=== PATIENT | female | born 1985 | race Two or more races ===

== ENCOUNTER → 2018-08-28 09:53 | Outpatient (CLI) | payer MEDICAID, SELFPAY ==
[2018-08-28 10:27] LABS: Basophils # 0.1 K/mm3 (0-0.2); Basophils % 0.3 % (0.1-2.0); Eosinophils # 0.3 K/mm3 (0.0-0.4); Eosinophils % 2.3 % (0.1-12.0); Hemoglobin 12.1 g/dL (12.2-16.2); Lymphocytes # 3.4 K/mm3 (0.7-4.5); Lymphocytes % 23.3 % (10-50); Mean Corpuscular HGB Conc 31.8 g/dL (31.8-35.4); Mean Corpuscular Hemoglobin 28.8 pg (27.0-31.2); Mean Corpuscular Volume 90.3 fl (81-99); Monocytes # 0.5 K/mm3 (0.1-1.0); Monocytes % 3.3 % (1.7-9.3); Neutrophils # 10.4 K/mm3 (1.8-7.8); Neutrophils % 70.8 % (37.0-80.0); Platelet Count 387 K/mm3 (142-424); Red Cell Distribution Width 12.6 % (11.5-17.5); White Blood Count 14.7 K/mm3 (4.8-10.8)
[2018-08-28 11:29] LABS: Alanine Aminotransferase 22 U/L (12-78); Albumin Level 2.9 gm/dL (3.4-5.0); Albumin/Globulin Ratio 0.8 (1.1-1.8); Alkaline Phosphatase 75 U/L (46-116); Anion Gap 14.1 mEq/L (5-15); Aspartate Amino Transferase 16 U/L (15-37); Bilirubin,Total 0.2 mg/dL (0.2-1.0); Blood Urea Nitrogen 11 mg/dL (7-18); Calcium 8.5 mg/dL (8.5-10.1); Carbon Dioxide 25 mmol/L (21.0-32.0); Chloride 103 mmol/L (98-107); Creatinine,Serum 0.81 mg/dL (0.55-1.02); Estimated Glomerular Filt Rate 81 ml/min (>60); Ferritin 48 ng/mL (8-388); GFR (African American) 99 ML/MIN (>60); Globulin 3.7 gm/dl (1.3-3.2); Glucose 99 mg/dL (74-106); Potassium 4.1 mmoL/L (3.5-5.1); Sodium 138 mmol/L (136-145); Thyroid Stimulating Hormone 3.03 uIU/ml (0.358-3.740); Total Protein,Serum 6.6 gm/dL (6.4-8.2)
== END ==
PROVIDERS: Visit Provider Specialist
DX: E83.10 Disorder of iron metabolism, unspecified (principal); I10 Essential (primary) hypertension; R51 Headache
CPT/HCPCS: 36415; 80053; 82728; 84443; 85025

== ENCOUNTER 2023-03-04 07:14 | Outpatient (CLI) | payer MEDICAID, SELFPAY ==
--- NOTE | 2023-03-04 08:09 | US_ITS ---
FINAL REPORT CLINICAL HISTORY: UPPER ABD PAIN COMPARISON: None FINDINGS: Sonographic images of the abdomen were obtained. There is fatty infiltration of the liver. The gallbladder has been surgically resected. There is no evidence of biliary ductal dilatation. The common hepatic duct measures 3 mm, which is within normal limits. Limited images of the pancreas are unremarkable. The spleen size is normal. The right kidney measures 9.9 in length. The left kidney measures 10.1 in length. There is normal renal echogenicity. There is no evidence of hydronephrosis. The aorta has an unremarkable appearance. Limited images of the inferior vena cava are unremarkable. IMPRESSION: Prior cholecystectomy. Fatty infiltration of the liver without evidence of biliary ductal dilatation. Reviewed, Interpreted and Dictated by Harpal Morejon III, MD Transcribed by Rahel Pina Authenticated and [facility]
== END 2023-03-04 23:59 ==
LOC: RAD 07:14
PROVIDERS: PCP Nurse Practitioner Family; Visit Provider Nurse Practitioner Family
DX: R10.13 Epigastric pain (principal)
CPT/HCPCS: 76700

== ENCOUNTER 2023-06-30 14:15 | Outpatient (CLI) | payer MEDICAID, SELFPAY ==
[2023-06-30 14:56] LABS: Basophils # 0.1 K/mm3 (0-0.2); Basophils % 0.4 % (0.1-2.0); Eosinophils # 0.4 K/mm3 (0.0-0.4); Eosinophils % 2.9 % (0.1-12.0); Hematocrit 37.8 % (37.0-47.0); Hemoglobin 12.7 g/dL (12.2-16.2); Lymphocytes # 2.3 K/mm3 (0.7-4.5); Lymphocytes % 16.2 % (10-50); Mean Corpuscular HGB Conc 33.5 g/dL (31.8-35.4); Mean Corpuscular Hemoglobin 27.7 pg (27.0-31.2); Mean Corpuscular Volume 82.7 fl (81-99); Mean Platelet Volume 8.3 fl (7.4-10.4); Monocytes # 0.6 K/mm3 (0.1-1.0); Monocytes % 4.3 % (1.7-9.3); Neutrophils # 10.9 K/mm3 (1.8-7.8); Neutrophils % 76.1 % (37.0-80.0); Platelet Count 388 K/mm3 (142-424); Red Blood Count 4.57 M/mm3 (4.20-5.40); Red Cell Distribution Width 17.2 % (11.5-17.5); White Blood Count 14.4 K/mm3 (4.8-10.8)
[2023-06-30 15:16] LABS: Chloride 101 mmol/L (98-107)
[2023-06-30 15:17] LABS: Potassium 4.3 mmoL/L (3.5-5.1); Sodium 136 mmol/L (136-145)
[2023-06-30 15:19] LABS: Alanine Aminotransferase 24 U/L (12-78); Alkaline Phosphatase 146 U/L (38-126); Aspartate Amino Transferase 28 U/L (14-36); Bilirubin,Total 0.7 mg/dl (0.2-1.3); Blood Urea Nitrogen 17 mg/dl (7-17); Estimated Glomerular Filt Rate 94 ml/min (>60); GFR (African American) 113 ML/MIN (>60)
[2023-06-30 15:20] LABS: Albumin Level 3.9 g/dl (3.5-5.0); Albumin/Globulin Ratio 1.3 (1.1-1.8); Anion Gap 14.3 mEq/L (5-15); Calcium 9.7 mg/dl (8.4-10.2); Carbon Dioxide 25 mmol/L (22.0-30.0); Globulin 2.9 g/dL (1.3-3.2); Glucose 104 mg/dl (74-100); Total Protein,Serum 6.8 g/dl (6.3-8.2)
[2023-06-30 17:23] LABS: HCG,Quantitative < 2 mIU/ml (0-5.42)
[2023-07-02 10:28] LABS: DHEA-Sulfate 43.9 ug/dL (57.3-279.2); Estradiol 21.1 pg/mL (.); LH 1.7 mIU/mL (.); Prolactin 14.9 ng/mL (4.8-33.4); Testosterone,Total <3 ng/dL (8-60)
== END 2023-06-30 23:59 | disposition home or self-care (01) ==
PROVIDERS: PCP Nurse Practitioner Family; Visit Provider Obstetrics & Gynecology
DX: Z01.419 Encounter for gynecological examination (general) (routine) without abnormal findings (principal); N91.1 Secondary amenorrhea
CPT/HCPCS: 36415; 80053; 82626; 82670; 83001; 83002; 83498; 84146; 84403; 84702; 85025

== ENCOUNTER 2023-09-27 15:04 | Outpatient (CLI) | payer MEDICAID, SELFPAY ==
--- NOTE | 2023-09-27 15:19 | US_ITS ---
PROCEDURE: US TRANSVAGINAL CLINICAL INDICATION: Secondary Amenorrhea COMPARISON: There are no transvaginal ultrasounds for comparison. FINDINGS: Transvaginal sonographic images of the pelvis were obtained. UTERUS: 8.2cm x 4.5 cmx 3.5cm anteverted with a combined endometrial thickness of 4.4mm. There is a small amount of fluid in the cervical canal. LEFT OVARY: 1.9 cmx2.5cmx1.1cm with a volume of 2.7ml. RIGHT OVARY: 1.6x 1.7x1.2cm with a volume of 1.6ml. The right ovary is difficult to visualize but appears normal. Both ovaries are seen and appear atrophic. Doppler flow to both ovaries are seen. There is no fluid in the cul-de-sac. IMPRESSION: 1. Anteverted uterus normal in shape and size. The endometrium is thin. There is a small amount of fluid in the cervical canal. 2. Both ovaries are seen and appear normal. They appear atrophic. The right ovary was more difficult to visualize. 3. No fluid in the cul-de-sac. Dictated by: Lonnie Mercedes MD 09/27/2023 16:56 Lonnie Mercedes MD in OV 09/27/2023 16:56
[2023-09-27 16:01] LABS: Basophils # 0.1 K/mm3 (0-0.2); Basophils % 0.7 % (0.1-2.0); Eosinophils # 0.3 K/mm3 (0.0-0.4); Eosinophils % 1.9 % (0.1-12.0); Hematocrit 37.3 % (37.0-47.0); Hemoglobin 12.5 g/dL (12.2-16.2); Lymphocytes # 2.9 K/mm3 (0.7-4.5); Lymphocytes % 22.4 % (10-50); Mean Corpuscular HGB Conc 33.4 g/dL (31.8-35.4); Mean Corpuscular Hemoglobin 30.6 pg (27.0-31.2); Mean Corpuscular Volume 91.6 fl (81-99); Mean Platelet Volume 8.6 fl (7.4-10.4); Monocytes # 0.7 K/mm3 (0.1-1.0); Monocytes % 5.3 % (1.7-9.3); Neutrophils # 9.1 K/mm3 (1.8-7.8); Neutrophils % 69.8 % (37.0-80.0); Platelet Count 356 K/mm3 (142-424); Red Blood Count 4.07 M/mm3 (4.20-5.40); Red Cell Distribution Width 12.9 % (11.5-17.5); White Blood Count 13.1 K/mm3 (4.8-10.8)
[2023-09-27 16:07] LABS: Alanine Aminotransferase 15 U/L (12-78); Albumin Level 3.6 g/dl (3.5-5.0); Albumin/Globulin Ratio 1.2 (1.1-1.8); Alkaline Phosphatase 79 U/L (38-126); Anion Gap 11.2 mEq/L (5-15); Aspartate Amino Transferase 25 U/L (14-36); Bilirubin,Total 0.4 mg/dl (0.2-1.3); Blood Urea Nitrogen 15 mg/dl (7-17); Calcium 9.5 mg/dl (8.4-10.2); Carbon Dioxide 29 mmol/L (22.0-30.0); Chloride 100 mmol/L (98-107); Estimated Glomerular Filt Rate 94 ml/min (>60); GFR (African American) 113 ML/MIN (>60); Globulin 2.9 g/dL (1.3-3.2); Glucose 91 mg/dl (74-100); Potassium 4.2 mmoL/L (3.5-5.1); Sodium 136 mmol/L (136-145); Total Protein,Serum 6.5 g/dl (6.3-8.2)
[2023-09-27 16:45] LABS: HCG,Quantitative < 2 mIU/ml (0-5.42)
== END 2023-09-27 23:59 | disposition home or self-care (01) ==
LOC: RAD 15:05
PROVIDERS: PCP Nurse Practitioner Family; Visit Provider Obstetrics & Gynecology
DX: E28.2 Polycystic ovarian syndrome (principal); N91.1 Secondary amenorrhea; Z01.818 Encounter for other preprocedural examination
CPT/HCPCS: 36415; 76830; 80053; 84702; 85025

== ENCOUNTER 2023-10-04 06:00 | Day surgery (SDC) | payer MEDICAID, SELFPAY ==
[2023-10-03 10:29] VITALS: BMI 56.7
[2023-10-04] VITALS (9 sets, daily range): BP systolic 112–152; BP diastolic 59–106; PULSE 63–101; RESP 14–18; TEMP 36.1–43; O2SAT 94–99
[2023-10-04] MEDS: LACTATED RINGERS 1000ML 1,000 ML 25 ML IV (06:21)
--- NOTE | 2023-10-04 08:11 | EXP.ANES.CKL ---
[facility] Disclaimer: The information contained in this section may have been updated after the patient was seen, as this information can be updated by other users. Medical History High blood pressure High cholesterol PCOS (polycystic ovarian syndrome) Migraine Surgical History History of cholecystectomy [place] teeth extracted Family History Family/Other Cancer second cousin-breast cancer Mother PCOS (polycystic ovarian syndrome) Social History Smoking Status: Never smoker alcohol intake: never substance use type: denies use current occupational status: employed and unemployed Travel in the last 8 weeks: None household members: family housing: house number of children: 0 [facility] Anesthesia Checklist Patient Identification Patient Identification: Verbal (Name & ) Structural Data Admitted From: Home Planned Operative Procedure/s: lap salpingectomy Consent for Planned Operative Procedure(s) Verified: Yes NPO Status Verified Time NPO: 00:00 Additional verifications Anesthesia Reactions: No Hx Blood Transfusions: No Blood Transfusion Reaction: No Airway Assessment Mallampati Score:: Class II C-Spine Mobility Assessed: Yes TMJ Mobility Assessed: Yes Dentition: Good Dentition Neurological Assessment Level of Consciousness: Awake, Alert and Appropriate Anesthesia Plan Anesthesia Risk discussed: Yes Anesthesia Plan: Verified ASA Class: III Anesthesia Type: General
--- NOTE | 2023-10-04 08:37 | EXP.OP.NOTE ---
Date of procedure: 10/04/23 Pre-op Diagnosis:: 1. Desires sterilization 2. Morbid obesity Post-op Diagnosis:: 1. Desires sterilization 2. Morbid obesity Procedure performed:: Laparoscopic sterilization with Filshie clips Surgeon:: Maya Oliveros DO Sheet Fed Printer(s):: Lonnie Mercedes MD AFLOAT CRYPTOLOGIC MANAGER:: Avila Salmeron Anesthesia: GETA Estimated blood loss (mL): 5 Operative findings:: 1. Bimanual examination was nonrevealing secondary to body habitus 2. Laparoscopic exam was difficult but revealed normal bowel, normal uterus, the lower uterine segment and ovaries were difficult to visualize but appeared normal. Operative note:: Jessy Coto is a 38-year-old who desires permanent sterilization. Encouraged IUD secondary to her secondary amenorrhea and the patient declined and wished to use a more permanent form of contraception. The patient was taken to the operating room where general anesthesia was obtained and noted to be adequate. SCDs were placed for thromboembolism prophylaxis and found to be working. The patient was placed in the dorsal lithotomy position using yellowfin stirrups. Timeout verified the correct patient and procedure. The patient was prepped and draped in a usual sterile fashion. A catheter was used to drain her bladder. An acorn uterine manipulator was placed and my top gloves were removed. 10mL of Lidocaine with epinepherine was injected infraumbilically and a scalpel was used to make a 5 mm infraumbilical incision with the assistance from a hemostat. The skin was tented and Optiview blunt trocar was introduced into the abdomen in the usual fashion. CO2 gas was connected with an initial pressure of 9 mmHg noted, visualization confirmed the correct location and the pressure quickly increased to approximately 13 mmHg. Pneumoperitoneum was created to a pressure of 15 mmHg. The laparoscopic camera was inserted and a quick survey of the abdomen revealed grossly normal anatomy for what could be visualized as there was signifcant amount of adipose tissue. The uterus was pushed into the abdomen and noted to have a normal contour. The patient was placed in Trendelenburg. 10mLs of local anesthetic was injected and a 5mm incision was then made in the left lower quadrant with careful attention to avoid the rectus muscles and vasculature and under direct laparoscopic visualization a blunt trocar was introduced into the abdominal cavity. It was not felt that we could safely insert a third port in the right lower quadrant, in addition there was very small amount of operative space making it difficult to control any bleeding that would occur if we proceeded with salpingectomy. Finally given the small working space from the pneumoperitoneum and the patient not being able to tolerate increased pressures decision was made to proceed with filshie clips. The 5mm port was replaced with an 8mm port. The fallopian tubes were identified on the cornu of the uterus and followed out to the ovaries which revealed grossly appearing anatomy. The filshie clip applicator was applied over the entirety of the fallopian tube approximately 1cm from the cornua. Two filshie clips were applied to each tube. Images were obtained to the medical record. Hemostasis was noted. Pneumoperitoneum reduced, and all ports removed. The 2 abdominal incisions were closed with a single simple interrupted suture using 4-0 Monocryl. Dermabond was applied to each skin incision. The Trotwood uterine manipulator was removed. All counts were correct x2, per nursing. The patient was extubated, stable, and transferred to the PACU. She will be discharged after meeting all DC criteria to include voiding, ambulating and tolerating PO independently. Condition: stable Disposition: same day Complications:: None
--- NOTE | 2023-10-04 08:47 | EXP.ANES.I ---
[facility] Anesthesia Record Part I Anesthesia Record I Intake, IV Amount: 1,200 Hydration: Adequate Estimated blood loss (mL): 0 Urine output (mL): 10 Blood Pressure: 150/100 SaO2: 96 Pulse Rate: 80 Airway Patency: Patent Respiratory Rate: 14 Temperature: 97.8 F Patient is:: Awake and Stable Stable to PACU at:: 08:43
[2023-10-04] MEDS: MEPERIDINE 25MG/ML 1ML SYRINGE 25 MG IV (08:58)
[2023-10-04] MEDS: ONDANSETRON 4MG/2ML VIAL 4 MG IV (09:00)
--- NOTE | 2023-10-05 07:47 | P.PNANES_ITS ---
[facility] Anesthesia Record Part II Anesthesia Record Part II Discharge Time: 09:13 Destination: Surgical Day Care (OP Surgery) PACU nurse assessment reviewed?: Yes Patient Condition:: Good Anesthesia Complications:: None Swallowing reflex intact?: Yes Airway Patency: Patent Cyanosis?: No Blood Pressure: 141/97 SaO2: 94 Respiratory Rate: 18 Pulse Rate: 63 Temperature: 98 F Mental Status: Alert & Oriented Pain level:: 0 Nausea and/or vomitting:: None Intake, IV Amount: 0 Hydration: Adequate
[2023-10-05 07:48] VITALS: BP 141/97; PULSE 63; RESP 18; TEMP 36.6; O2SAT 94
== END 2023-10-04 09:50 | disposition home or self-care (01) ==
PROVIDERS: PCP Nurse Practitioner Family; Visit Provider Obstetrics & Gynecology
PROC: (CPT 58671; principal; 2023-10-04 07:30)
DX: Z30.2 Encounter for sterilization (principal)
CPT/HCPCS: 58671; J1100; J1885; J2175; J2250; J2405; J2710; J3010; J7120

== ENCOUNTER 2024-01-16 11:56 | Outpatient (CLI) | payer MEDICAID, SELFPAY ==
--- NOTE | 2024-01-16 11:59 | XR_ITS ---
FINAL REPORT CLINICAL HISTORY: Foot Pain FINDINGS: AP, oblique and lateral views of the left foot were obtained. There is no prior exam for comparison. There is no acute fracture or dislocation. The joint spaces are preserved. Soft tissues are normal. IMPRESSION: No acute osseous abnormality of the left foot. Reviewed, Interpreted and Dictated by Marilyn Lo MD Transcribed by Chelsea Arango Authenticated and [facility]
--- NOTE | 2024-01-16 11:59 | XR_ITS ---
FINAL REPORT CLINICAL HISTORY: Foot Pain FINDINGS: AP, oblique and lateral views of the right foot were obtained. There is no prior exam for comparison. There is no acute fracture or dislocation. The joint spaces are preserved. Soft tissues are normal. IMPRESSION: No acute osseous abnormality of the right foot. Reviewed, Interpreted and Dictated by Marilyn Lo MD Transcribed by Chelsea Arango Authenticated and [facility]
== END 2024-01-16 23:59 | disposition home or self-care (01) ==
LOC: RAD 11:57
PROVIDERS: PCP Nurse Practitioner Family; Visit Provider Podiatrist
DX: M79.671 Pain in right foot (principal); M79.672 Pain in left foot
CPT/HCPCS: 73630